=== PATIENT | female | born 1985 | race Caucasian/White ===

== ENCOUNTER 2025-03-05 06:36 | Emergency (ER) | payer MEDICAID, OTHER ==
[~2025-03-05] VITALS: Ht 162.6 cm; Wt 50.0 kg
--- NOTE | 2025-03-05 07:31 | ED.PDOC ---
Eye-HPI HPI Comments 39-year-old female presents to the emergency department for chief complaint of eye problem. Patient reports, that she has been experiencing pain to her right eye with associated symptoms of head pressure x1day. Patient endorses having blurred vision from her right eye. Patient denies injury or trauma. No other symptoms or modifying factors present at this time Chief Complaint: Eye Problem Time Seen by MD: 07:20 Reviewed Notes: Nurses Notes, Medications, Allergies Allergies: Coded Allergies: NO KNOWN ALLERGIES (Unverified , 03/05/25) Information Source: Patient Mode of Arrival: Ambulatory Timing: Days Duration: Since onset Quality: Pain, Red Eye Location: Right Pupils: Normal EOM: Normal Fundus: Normal Slit lamp exam: Normal Anterior chamber: Normal Mouth: Normal ENT Ear Exam: Normal Nose: Normal Sinuses: Normal Oropharynx: Normal Onset: Spontaneous Throat Exposed to: None History of: None Last Tetanus: Unknown Associated signs and symptoms: None Past Medical History PAST MEDICAL HISTORY: Denies Surgical History: Denies all surgeries 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 Extraocular movements intact. Pupils equal reactive to light. No discharge. Left eye within normal limits. RIGHT EYE 20/25, LEFT EYE 20/50, BILATERAL 20/50. Right eye Valerio-Pen pressure at 9. Left eye Valerio-Pen pressure at 10. No uptake by a fluorescein on Wood's lamp.) Neck: Full Range of Motion, Non-Tender, Normal, Normal Inspection Respiratory: Chest Non-Tender, Lungs Clear, No Accessory Muscle Use, No Respiratory Distress, Normal Breath Sounds Cardiovascular: No Edema, No Murmur, No Gallop, Normal Peripheral Pulses, Regular Rate/Rhythm Breast Exam: Deferred Gastrointestinal: No Organomegaly, Non Tender, No Pulsatile Mass, Normal Bowel Sounds, Soft Genitalia: Deferred Pelvic: Deferred Rectal: Deferred Extremities: No calf tenderness, Normal capillary refill, Normal inspection, Normal range of motion, Non-tender, No pedal edema Musculoskeletal : Apperance: Normal Neurologic: Alert, street light cleaner II-XII nml as Tested, No Motor Deficits, Normal Affect, Normal Mood, No Sensory Deficits Cerebellar Function: Normal Reflexes: Normal Skin: Dry, Normal Color, Warm Lymphatic: No Adenopathy Was a procedure done? Was a procedure done?: No EENT DIFF Eye: Conjunctivitis, Allergic, Bacterial, Corneal Abrasion, Corneal Lacerations X-Ray, Labs, Meds, VS Vital Signs Date Time Temp Pulse Resp B/P (MAP) Pulse Ox O2 Delivery O2 Flow Rate FiO2 03/05/25 07:41 97.6 62 18 129/68 (88) 95 97.6 03/05/25 07:41 95 Room Air* 0 21 03/05/25 06:36 98.3 70 16 143/86 (105) 98 98.3 39-YEAR-OLD FEMALE PRESENTS HERE WITH RIGHT EYE IRRITATION AND PAIN SHE STATES PERHAPS SOMETHING WENT INTO THE EYE YESTERDAY SHE FLUSHED IT AND THE PAIN resolved. She states she woke up this morning in the eye was red. She also reports right eye pain and pressure and right side headache pressure. At this time visual acuity has been done both eyes are 20/50. She is doing these without glasses. Right eye is 202/5 left eye is 20/50. On my examination her right eye does have evidence of inflamed conjunctiva. No discharge. Valerio-Pen demonstrates appropriate pressures with left eye of 10 right eye at 9. There was no uptake with fluorescein. At this time suspect likely conjunctivitis. Visual acuity appropriate no was then lost demonstrated. Advised patient to follow up with the PCP in 2-3 days and return to the ER if symptoms worsen or persist. Time of 1ST Reevaluation: 09:20 Reevaluation 1ST: Unchanged Patient Education/Counseling: Diagnosis, Treatment Family Education/Counseling: No Family Present Departure 1 Departure Time of Disposition: 09:38 Impression: Primary Impression: Conjunctivitis Qualified Codes: B30.9 - Viral conjunctivitis, unspecified Disposition: 01 HOME / SELF CARE / HOMELESS Condition: Stable Additional Instructions: Advised her to follow up with the PCP in 2-3 days. Return to the ER if symptoms worsen or persist. Discharged With: Self Critical Care Note Critical Care Time?: No Stability Stability form required: No Heart Score Heart Score: Heart Score Response (Comments) Value History N/A 0 EKG N/A 0 Age N/A 0 Risk Factors N/A 0 Troponin N/A 0 Total 0 FENSTER,[email or web address] M MD Mar 05, 2025 07:31
[2025-03-05 07:41] VITALS: O2SAT 95
[2025-03-05] MEDS: TETRACAINE HCL 0.5% OPTH(EYE) SOLN 4ML RIGHTEYE ONE (08:30)
[2025-03-05] MEDS: FLUORESCEIN SOD OPTH TEST STRIP OP ONE (08:30)
[2025-03-05 09:56] VITALS: BP 122/70; TEMP 98.7
[2025-03-05 09:57] VITALS: PULSE 57; RESP 16; O2SAT 98
== END 2025-03-05 09:58 | disposition home or self-care (01) ==
LOC: EDBD 06:36 → ER 06:42
DX: H10.9 Unspecified conjunctivitis (principal); H57.11 Ocular pain, right eye; F17.210 Nicotine dependence, cigarettes, uncomplicated